=== PATIENT | female | born 1975 | race Caucasian/White ===

== ENCOUNTER → 2016-12-03 | Outpatient (CLI) | payer BC ==
--- NOTE | 2016-12-03 17:23 | RAD ---
Cervical spine, 3 views, 12/03/2016: History: Neck pain There is straightening of the normal cervical lordosis. No fracture or dislocation is identified. The intervertebral disc spaces are well-maintained. There is only minimal anterior spurring at C5-6. The prevertebral soft tissues are unremarkable. IMPRESSION: 1. Straightening of the normal cervical lordosis. 2. No acute bony abnormality is detected.
== END | disposition home or self-care (01) ==
LOC: RAD 15:23
PROVIDERS: ATTEND Physician Assistant
DX: M40.202 Unspecified kyphosis, cervical region (principal); R20.2 Paresthesia of skin; R29.898 Other symptoms and signs involving the musculoskeletal system; R20.0 Anesthesia of skin
CPT/HCPCS: 72040

== ENCOUNTER → 2017-01-08 | Outpatient (CLI) | payer BC ==
--- NOTE | 2017-01-08 16:03 | RAD ---
DATE: 01/08/2017. EXAM: DIGITAL SCREEN BILAT W/CAD. HISTORY: Routine mammographic screening. COMPARISON: This is the baseline study. This study was interpreted with the benefit of Computerized Aided Detection (CAD). FINDINGS: The breast parenchyma is primarily fatty replaced. Breast parenchyma level density A.. There are no suspicious masses, microcalcifications or architectural distortion. Coarse calcifications and/or renal cysts bilaterally are benign. BI-RADS CATEGORY: 2 BENIGN FINDING(S). RECOMMENDED FOLLOW-UP: 12M 12 MONTH FOLLOW-UP. PQRS compliance statement: Patient information was entered into a reminder system with a target due date 01/08/2018 for the next mammogram. Mammography is a sensitive method for finding small breast cancers, but it does not detect them all and is not a substitute for careful clinical examination. A negative mammogram does not negate a clinically suspicious finding and should not result in delay in biopsying a clinically suspicious abnormality. "Our facility is accredited by the [employer] Mammography Program."
== END | disposition home or self-care (01) ==
LOC: MAMMO 10:13
PROVIDERS: ATTEND Physician Assistant
DX: Z12.31 Encounter for screening mammogram for malignant neoplasm of breast (principal)
CPT/HCPCS: G0202; 77067